=== PATIENT | male | born 1975 | race Caucasian/White ===

== ENCOUNTER 2016-11-08 16:15 | Emergency (ER) | payer MEDICARE ==
[~2016-11-08] VITALS: Ht 188 cm; Wt 72.6 kg
[~2016-11-08 16:15] MED LIST: ALBUTEROL MININEB NEB; ALBUTEROL17 GM INH; BACTRIM DS TABL1 TA2 PO; CLINDAMYCIN HC300 MG; FLEXERIL PO; NO MEDICATIONS; ORUDIS75 M1 PO; PEN-VEE K PO; TESSALON PERLE100 M1 PO; VOLTAREN75 MG PO; ZITHROMAX PO; [UNRECOGNIZED DRUG - OTHER]
== END 2016-11-08 18:30 | disposition home or self-care (01) ==
LOC: SED 16:15
DX: S61.511A Laceration without foreign body of right wrist, initial encounter (principal); R56.9 Unspecified convulsions; Z88.4 Allergy status to anesthetic agent; W22.8XXA Striking against or struck by other objects, initial encounter; Y92.009 Unspecified place in unspecified non-institutional (private) residence as the place of occurrence of the external cause
CPT/HCPCS: 12002; 99283